=== PATIENT | male | born 1960 | race Caucasian/White ===

== ENCOUNTER 2021-08-24 20:08 | Inpatient (IN) | payer SELFPAY ==
[~2021-08-24] VITALS: Ht 175.3 cm; Wt 65.8 kg
[2021-08-24] MEDS ORDERED: CEFTRIAXONE 1 G PREMIX 50 ML IV ONE (21:00)
[2021-08-24] MEDS ORDERED: SODIUM CHLORIDE 0.9% 1000ML BAG (SEPSIS BOLUS) IV ONE (21:00)
[2021-08-24] MEDS ORDERED: DEXAMETHASONE 10 MG/ML VIAL IV ONE (21:00)
[2021-08-24] MEDS ORDERED: ACETAMINOPHEN 325MG TABLET PO ONE (21:00)
[2021-08-24] MEDS ORDERED: AZITHROMYCIN 500MG/250ML 250 ML IV ONE (21:00)
[2021-08-24 21:40] LABS: CHLORIDE 102 mEq/L (98-107)
[2021-08-24 21:42] LABS: INR 1.1; PARTIAL THROMBOPLASTIN TIME < 21.0 sec (23.4-31.0); PROTHROMBIN TIME 12.2 sec (9.6-11.0)
[2021-08-24 22:03] LABS: BG BASE EXCESS -0.9 mmol/L (-2.0-2.0); BG CARBOXYHEMOGLOBIN 0.8 % (0.5-1.5); BG DEOXYHEMOGLOBIN 4.9 % (0.0-5.0); BG FRACTION INSPIRED OXYGEN 36; BG METHEMOGLOBIN 0.1 % (0.0-1.5); BG OXYGEN SATURATION 95.1 % (92.0-98.5); BG OXYHEMOGLOBIN 94.2 % (94.0-97.0); BG PCO2 31.4 mmHg (35.0-45.0); BG PH 7.463 (7.350-7.450); BG SAMPLE SITE LEFT RADIAL; BG TOTAL HEMOGLOBIN 13.6 g/dL (12.0-18.0); BG VENT MODE NASAL CANNULA
[2021-08-24 22:03] LABS: CLARITY URINE CLEAR (CLEAR); COLOR URINE DARK YELLOW (YELLOW); KETONES URINE 1+ (NEGATIVE); LEUKOCYTE ESTERASE URINE TRACE (NEGATIVE); NITRITE URINE NEGATIVE (NEGATIVE); OCCULT BLOOD URINE NEGATIVE (NEGATIVE); PH URINE 5.5 (4.5-8.0); PROTEIN URINE 2+ (NEGATIVE); SPECIFIC GRAVITY URINE 1.026 (1.005-1.030)
[2021-08-24 22:06] LABS: HEMATOCRIT. 43.9 % (42.0-52.0); HEMOGLOBIN. 13.9 g/dL (14.0-18.0); MEAN CORPUSCULAR HEMOGLOBIN 27.1 pg (28.0-32.0); MEAN CORPUSCULAR VOLUME 85.5 fL (80.0-94.0); MEAN PLATELET VOLUME 8.2 fl (7.4-10.4); PLATELET 238 x1000/uL (130-400); RED BLOOD CELL COUNT 5.14 mill/uL (4.7-6.1); RED CELL DISTRIBUTION WIDTH 14.8 % (11.6-14.6)
[2021-08-24 23:00] LABS: PLATELET ESTIMATE NORMAL
[2021-08-24] MEDS ORDERED: HYDROCODONE/ACETAMINOPHEN 5/325MG TABLET PO PRN (23:15)
[2021-08-24] MEDS ORDERED: MAGNESIUM/ALUMINUM HYDROXIDE/SIMETHICONE 30ML UDC PO PRN (23:15)
[2021-08-24] MEDS ORDERED: CLONIDINE 0.1MG TABLET PO PRN (23:15)
[2021-08-24] MEDS ORDERED: ONDANSETRON HCL 4MG/2ML INJ IV PRN (23:15)
[2021-08-25 01:15] VITALS: BP_SYST 100; BP_SYST 130; BP_DIAS 54; BP_DIAS 74
[2021-08-25 04:00] VITALS: BP 96/61
[2021-08-25 06:29] LABS: HEMATOCRIT. 38.9 % (42.0-52.0); MEAN CORPUSCULAR VOLUME 83.2 fL (80.0-94.0); MEAN PLATELET VOLUME 8.3 fl (7.4-10.4); PLATELET 270 x1000/uL (130-400); RED BLOOD CELL COUNT 4.67 mill/uL (4.7-6.1); RED CELL DISTRIBUTION WIDTH 14.7 % (11.6-14.6)
[2021-08-25 08:00] VITALS: BP 99/64
[2021-08-25] MEDS: DEXAMETHASONE 4MG/ML 1ML VIAL IV SCH (08:18)
[2021-08-25 08:30] LABS: CHLORIDE 103 mEq/L (98-107)
[2021-08-25 12:00] VITALS: BP 95/58
[2021-08-25] MEDS: FUROSEMIDE 20MG/2ML VIAL IVP SCH (12:25)
[2021-08-25 15:55] VITALS: BP 104/67
[2021-08-25 20:00] VITALS: BP 97/55
[2021-08-25] MEDS ORDERED: CEFTRIAXONE 1,000 MG in DEXTROSE 5% WATER 50 ML IV SCH (21:00)
[2021-08-25] MEDS: AZITHROMYCIN 500MG in DEXTROSE 5% WATER 250ML IV SCH (21:03)
[2021-08-25] MEDS: CEFTRIAXONE 1,000 MG in DEXTROSE 5% WATER 50 ML IV SCH (21:04)
[2021-08-25] MEDS ORDERED: AZITHROMYCIN 500 MG in DEXT 5% WATER 250 ML IV SCH (23:00)
[2021-08-26] VITALS: BP 94/61
[2021-08-26 04:00] VITALS: BP 96/61
[2021-08-26] MEDS: DEXAMETHASONE 4MG/ML 1ML VIAL IV SCH (07:50)
[2021-08-26 08:00] VITALS: BP 92/58
[2021-08-26] MEDS: FUROSEMIDE 20MG/2ML VIAL IVP SCH (09:00)
[2021-08-26] MEDS ORDERED: GUAIFENESIN-DM 200MG-20MG/10ML UDC PO PRN (10:00)
[2021-08-26 12:00] VITALS: BP 102/68
[2021-08-26 14:57] LABS: PLATELET ESTIMATE NORMAL
[2021-08-26 16:00] VITALS: BP 100/65
[2021-08-26 20:00] VITALS: BP 102/66
[2021-08-26] MEDS: AZITHROMYCIN 500MG in DEXTROSE 5% WATER 250ML IV SCH (21:18)
[2021-08-26] MEDS: CEFTRIAXONE 1,000 MG in DEXTROSE 5% WATER 50 ML IV SCH (21:18)
[2021-08-26] MEDS ORDERED: NALOXONE HCL 0.4MG/ML VIAL IV PRN (23:00)
[2021-08-27] VITALS (8 sets, daily range): BP systolic 79–119; BP diastolic 39–63
[2021-08-27] MEDS: ACETAMINOPHEN 650MG/20.3ML UDC GT PRN ×2 (02:30→15:13)
[2021-08-27] MEDS ORDERED: SODIUM CHLORIDE 0.9% 500 ML IV SCH (07:30)
[2021-08-27] MEDS: FUROSEMIDE 20MG/2ML VIAL IVP SCH (07:56)
[2021-08-27] MEDS: DEXAMETHASONE 4MG/ML 1ML VIAL IV SCH (07:57)
[2021-08-27] MEDS ORDERED: HEMORRHOIDAL SUPP PR NR (10:05)
[2021-08-27] MEDS: CEFTRIAXONE 1,000 MG in DEXTROSE 5% WATER 50 ML IV SCH (21:17)
[2021-08-27] MEDS: AZITHROMYCIN 500MG in DEXTROSE 5% WATER 250ML IV SCH (22:13)
[2021-08-28] VITALS: BP 106/62
[2021-08-28 04:00] VITALS: BP 101/66
[2021-08-28 08:10] VITALS: BP 120/66
[2021-08-28 12:15] VITALS: BP 93/58
[2021-08-28] MEDS: ACETAMINOPHEN 650MG/20.3ML UDC GT PRN (12:31)
== END 2021-08-28 12:50 | disposition left against medical advice (07) | DRG 139 ==
LOC: ER 20:08 → 7WST 22:56 → ENRESERV 23:21 → 8WST 08-26 08:25
PROVIDERS: ADMIT Hospitalist; ATTEND Hospitalist
DX: J12.9 Viral pneumonia, unspecified (principal); J96.01 Acute respiratory failure with hypoxia; E43 Unspecified severe protein-calorie malnutrition; I50.40 Unspecified combined systolic (congestive) and diastolic (congestive) heart failure; Z20.822 Contact with and (suspected) exposure to COVID-19; Z53.29 Procedure and treatment not carried out because of patient's decision for other reasons; Z68.21 Body mass index [BMI] 21.0-21.9, adult
CPT/HCPCS: 36415; 36600; 71045; 80053; 81003; 82375; 82805; 83605; 83880; 84145; 84484; 85025; 87426; 93005; 93306; 99291; J0456; J0696; J1100; J1940; J7030; J7040; J7060; U0003; U0005